=== PATIENT | male | born 1975 | race Caucasian/White ===

== ENCOUNTER 2017-01-04 15:48 | Emergency (ER) | payer OTHER ==
[2017-01-04 16:02] VITALS: BP 128/73; PULSE 63; TEMP 99.5; BMI 23.5
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
[2017-01-04] MEDS ORDERED: ALBUTEROL SO4 2.5/IPRATROPIUM 0.5 INH SOL 3 ML VIAL.NEB. NEB ONE (18:08)
== END 2017-01-04 18:17 | disposition home or self-care (01) ==
LOC: JERFT 15:48
PROC: 3E0F7GC Introduction of Other Therapeutic Substance into Respiratory Tract, Via Natural or Artificial Opening (ICD-10-PCS; principal; 2017-01-04)
DX: J20.9 Acute bronchitis, unspecified (principal)
CPT/HCPCS: 94640; 99281-25